=== PATIENT | male | born 1975 | race Caucasian/White ===

== ENCOUNTER 2018-06-28 04:02 | Emergency (ER) | payer OTHER ==
[2018-06-28 04:27] VITALS: BP 127/87; PULSE 95; TEMP 97.6; BMI 34.5
[2018-06-28] MEDS ORDERED: methylPREDNISolone NA SUCC 125 MG/2 ML VIAL ONE ×2 (04:41→04:42)
[2018-06-28] MEDS ORDERED: FAMOTIDINE 20 MG/50 ML IVPB 20 MG/50 ML MG IVPB ONE (04:41)
--- NOTE | 2018-06-28 04:42 | PDOC ---
History of Present Illness - General Chief Complaint: Allergic Reaction Stated Complaint: ITCHING/REDNESS Time Seen by Provider: 06/28/18 04:42 - History of Present Illness Initial Comments: 43 year old previously healthy male presenting with rash and pruritus since night. Patient states that he has a flu shot and since then he has been itching with small swollen lesion son his arms and chest. The lesions got better with some Benadryl and topical creams prescribed by his doctor. He came in today because he rash hasn't completely resolved and he is still slightly itchy. Denies any SOB, wheezing, nausea, vomiting, or other symptoms. 06/28/18 05:02 Past History - Past Medical History Allergies/Adverse Reactions: Allergies Allergy/AdvReac Type Severity Reaction Status Date / Time No Known Allergies Allergy Verified 06/28/18 04:24 Home Medications: Ambulatory Orders Alfuzosin HCl [Alfuzosin HCl ER] 10 mg PO DAILY 06/10/14 Gabapentin 300 mg PO DAILY 05/31/16 Lansoprazole [Prevacid] 30 mg PO DAILY 05/31/16 Metoclopramide HCl 5 mg PO BID 05/31/16 Tramadol HCl 50 mg PO PRN PRN 05/31/16 Oxycodone HCl/Acetaminophen [Percocet 5-325 mg Tablet] 1 tab PO Q6H PRN #20 tablet MDD 4 06/01/16 Anemia: No Asthma: No Cancer: No Cardiac Disorders: No CVA: No COPD: No (SLEEP APNEA-NOT USING CPAP NOW) CHF: No Dementia: No Diabetes: No GI Disorders: Yes (GERD, GASTRIC ULCER) Disorders: Yes (ENLARGED PROSTATE) HTN: No Hypercholesterolemia: No Liver Disease: No Seizures: No Thyroid Disease: No - Surgical History Abdominal Surgery: No Appendectomy: No Cardiac Surgery: No Cholecystectomy: No Lung Surgery: No Neurologic Surgery: No Orthopedic Surgery: Yes (LEFT ARHTROSCOPY) - Immunization History Immunization Up to Date: Yes - Suicide/Smoking/Psychosocial Hx Smoking History: Never smoked Have you smoked in the past 12 months: No If you are a former smoker, when did you quit?: 2010 Information on smoking cessation initiated: No Hx Alcohol Use: No Drug/Substance Use Hx: No Substance Use Type: None Hx Substance Use Treatment: No Review of Systems - Review of Systems Constitutional: No: Chills, Diaphoresis, Fever HEENTM: No: Blurred Vision, Tearing Respiratory: No: Cough, Shortness of Breath, Wheezing Cardiac (ROS): No: Chest Pain, Irregular Heart Rate, Lightheadedness ABD/GI: No: Diarrhea, Nausea, Poor Appetite, Vomiting : No: Burning, Dysuria, Discharge Musculoskeletal: No: Back Pain, Joint Pain, Muscle Weakness Integumentary: Yes: Erythema, Lesions, Pruritus, Rash Neurological: No: Headache, Numbness, Paresthesia Psychiatric: No: Anxiety, Depression Hematologic/Lymphatic: No: Anemia, Blood Clots, Easy Bleeding *Physical Exam - Vital Signs Last Vital Signs Temp Pulse Resp BP Pulse Ox 97.6 F 95 H 20 127/87 98 06/28/18 04:24 06/28/18 04:24 06/28/18 04:24 06/28/18 04:24 06/28/18 04:24 - Physical Exam General Appearance: Yes: Nourished, Appropriately Dressed. No: Apparent Distress HEENT: positive: EOMI, DANILO, Normal ENT Inspection, Normal Voice Neck: positive: Trachea midline, Normal Thyroid, Supple. negative: Tender, Rigid Respiratory/Chest: positive: Lungs Clear, Normal Breath Sounds. negative: Chest Tender, Respiratory Distress Cardiovascular: positive: Regular Rhythm, Regular Rate Gastrointestinal/Abdominal: positive: Normal Bowel Sounds, Flat, Soft. negative : Tender Lymphatic: negative: Adenopathy, Tenderness Musculoskeletal: positive: Normal Inspection. negative: Decreased Range of Motion Extremity: positive: Normal Capillary Refill, Normal Inspection, Normal Range of Motion. negative: Tender Integumentary: positive: Dry, Warm, Erythema, Hives, Rash (Hives acorss right gforearm with swollen erythematous urticarial rash on chest and back). negative : Normal Color Medical Decision Making - Medical Decision Making Patent with unknown allergy with urticaria and pruritus for the past few days. NO Gi or respiratory involvement. Improved with Benadryl, steroids, and pepcid. Will DC with home prescription for Benadryl and continued steroid usage. 06/28/18 07:02 *DC/Admit/Observation/Transfer Diagnosis at time of Disposition: Urticaria - Discharge Dispostion Disposition: HOME Condition at time of disposition: Improved Decision to Admit order: No - Referrals Referrals: Juan Martinez MD [Primary Care Provider] - Eliel Perez MD [Staff Physician] - - Patient Instructions Printed Discharge Instructions: DI for General Allergic Reactions Additional Instructions: Please take Benadryl and steroids for your allergies as directed by your doctor. Please make an appointment with the occupancy specialist on this sheet of paper. Please return to the ED if you have any new or worsening symptoms. - Post Discharge Activity
--- NOTE | 2018-06-28 04:44 | PDOC ---
Attending Attestation - Resident Resident Name: Brayan Reyes - ED Attending Attestation I have performed the following: I have examined & evaluated the patient, The case was reviewed & discussed with the resident, I agree w/resident's findings & plan - HPI HPI: 06/29/18 00:41 Pt has itchy hives on upper body. Ate his usual foods at home. No beauty products, medicines, chemical, and no exposure to animals. - Physicial Exam PE: 06/29/18 00:42 Agree with resident. Few hives were present; disappeared with treatment in the ER. Pt has some redness and itchiness of the palms. - Medical Decision Making 06/29/18 00:43 Pt received solumedrol and IBV benadryl. He will be given PO benadryl and he will be d/c home with the meds that he received at the clinic (benadryl and prednisone)
== END 2018-06-28 07:16 | disposition home or self-care (01) ==
LOC: JER 04:02
DX: L50.9 Urticaria, unspecified (principal); K21.9 Gastro-esophageal reflux disease without esophagitis; N40.0 Benign prostatic hyperplasia without lower urinary tract symptoms; G47.30 Sleep apnea, unspecified
CPT/HCPCS: 99282-25

== ENCOUNTER 2019-04-21 10:02 | Observation (INO) | payer OTHER ==
--- NOTE | 2019-04-21 12:23 | PDOC ---
History of Present Illness - General Chief Complaint: Lightheaded Stated Complaint: Nausea/Vomiting Time Seen by Provider: 04/21/19 12:07 - History of Present Illness Initial Comments: Mr. Hernandez is a 44 y/o male with PMH significant for gastric ulcer and arthritis, presenting today with headache that started this morning around 7am. Describes it as a left sided temporal headache that has spread to a frontal headache. Describes it as a pressure like sensation. Reports photophobia, denies phonophobia, changes in vision, or changes in hearing. Reports associated nausea and vomiting NBNB this morning. Reports that the nausea mildly subsided with zofran from EMS, but has returned. States that the nausea/vomiting and vertigo are worse with movement. Reports that he had similar symptoms around 5 years ago but was never medically evaluated for that. Denies fever, denies neck pain, denies chest pain, shortness of breath, abdominal pain, changes in stools or urinary symptoms, denies recent illness. Past History - Past Medical History Allergies/Adverse Reactions: Allergies Allergy/AdvReac Type Severity Reaction Status Date / Time No Known Allergies Allergy Verified 06/28/18 04:24 Home Medications: Ambulatory Orders Metoprolol Succinate 25 mg PO DAILY 04/21/19 Pantoprazole Sodium [Protonix -] 40 mg PO DAILY 04/21/19 Meclizine HCl [Antivert -] 25 mg PO TID 20 Days #60 tablet 04/23/19 Anemia: No Asthma: No Cancer: No Cardiac Disorders: No CVA: No COPD: No (SLEEP APNEA-NOT USING CPAP NOW) CHF: No Dementia: No Diabetes: No GI Disorders: Yes (GERD, GASTRIC ULCER) Disorders: Yes (ENLARGED PROSTATE) HTN: No Hypercholesterolemia: No Liver Disease: No Seizures: No Thyroid Disease: No - Surgical History Abdominal Surgery: No Appendectomy: No Cardiac Surgery: No Cholecystectomy: No Lung Surgery: No Neurologic Surgery: No Orthopedic Surgery: Yes (LEFT ARHTROSCOPY) - Immunization History Immunization Up to Date: Yes - Suicide/Smoking/Psychosocial Hx Smoking History: Never smoked Have you smoked in the past 12 months: No If you are a former smoker, when did you quit?: 2010 Information on smoking cessation initiated: No Hx Alcohol Use: No Drug/Substance Use Hx: No Substance Use Type: None Hx Substance Use Treatment: No Review of Systems - Review of Systems Comments:: ROS GENERAL/CONSTITUTIONAL: No fever or chills. No weakness. HEAD, EYES, EARS, NOSE AND THROAT: No change in vision. Reports photophobia. No ear pain or discharge. No sore throat. CARDIOVASCULAR: No chest pain or shortness of breath. RESPIRATORY: Denies cough, hemoptysis. GASTROINTESTINAL: Reports nausea, vomiting. Denies diarrhea or constipation. GENITOURINARY: No dysuria, frequency, or change in urination. MUSCULOSKELETAL: No joint or muscle swelling or pain. No neck or back pain._ SKIN: No rash. NEUROLOGIC: Reports frontal headache and vertigo. Denies loss of consciousness, or change in strength/sensation. ENDOCRINE: No increased thirst. No abnormal weight change. HEMATOLOGIC/LYMPHATIC: No anemia, easy bleeding, or history of blood clots. ALLERGIC/IMMUNOLOGIC: No hives or skin allergy. *Physical Exam - Vital Signs Last Vital Signs Temp Pulse Resp BP Pulse Ox 97.4 F L 88 18 154/89 96 04/21/19 10:04 04/21/19 10:04 04/21/19 10:04 04/21/19 10:04/21/19 10:04 - Physical Exam Comments: PE GENERAL: Awake, alert, and oriented to person/place/time, in no acute distress. HEAD: No signs of trauma, normocephalic, atraumatic. EYES: PERRLA, EOMI, sclera anicteric, conjunctiva clear. ENT: Hearing grossly normal, nares patent, oropharynx clear without exudates. No uvular deviation. Moist mucosa. NECK: Normal ROM, supple, no lymphadenopathy, JVD, or masses. LUNGS: No distress, speaks in full sentences, clear to auscultation bilaterally. HEART: Regular rate and rhythm, normal S1 and S2, no murmurs appreciated, peripheral pulses normal and equal bilaterally. ABDOMEN: Soft, nontender, normoactive bowel sounds. No guarding, no rebound. No masses. EXTREMITIES: Normal inspection, Normal range of motion, no edema. No clubbing or cyanosis. NEUROLOGICAL: Cranial nerves II through XII grossly intact. Normal speech, normal gait, no focal sensorimotor deficits. Horizontal nystagmus on right lateral gaze. Horizontal nystagmus with rotational component to the right on vertical gaze. SKIN: Warm, normal turgor, no rashes or lesions noted. Diaphoretic. ED Treatment Course - LABORATORY CBC & Chemistry Diagram: 04/22/19 05:25 04/22/19 05:25 Medical Decision Making - Medical Decision Making 04/21/19 1245 44M presenting with frontal pressure headache that started this morning. Associated with nausea and vomiting. Describes vertigo like dizziness that is worse with movement and head rotation. DDx includes peripheral vertigo vs central vertigo. Plan to obtain CBC, CMP, EKG, CT head. 04/21/19 15:00 CT shows no acute intracranial process. Pt reassessed after antivert, zofran, and valium. Reports that vertigo has mildly decreased but still feels nausea/vomiting when he moves or turns his head. Will trial Valium and reassess. 04/21/19 1515 EKG shows NSR, 92 bpm, no axis deviation, no ST elevation/depression, QTc 445. 04/21/19 1630 Patient unable to ambulate without assistance. Reports that nausea, vomiting, and vertigo persist. Plan to admit with neuro consult. Spoke with Dr. Brady, who agrees to admit the patient. *DC/Admit/Observation/Transfer Diagnosis at time of Disposition: Vertigo - Discharge Dispostion Disposition: HOME Condition at time of disposition: Stable Decision to Admit order: Yes - Referrals - Patient Instructions - Post Discharge Activity
[2019-04-21] MEDS ORDERED: SODIUM CHLORIDE 0.9% 500 ML INFUS.BAG IV ONE (12:41)
[2019-04-21] MEDS ORDERED: MECLIZINE HCL 25 MG TABLET (FP) PO ONE (12:41)
[2019-04-21] MEDS ORDERED: MECLIZINE HCL 25 MG TABLET (FP) ONE (12:53)
[2019-04-21] MEDS ORDERED: ONDANSETRON 4 MG/2 ML VIAL IVPUSH ONE (13:14)
[2019-04-21] MEDS ORDERED: diazePAM 2 MG TABLET PO ONE ×2 (13:14→14:56)
--- NOTE | 2019-04-21 13:14 | PDOC ---
Documentation entered by Sandie Nur SCRIBE, acting as scribe for Cole Olvera MD. Cole Olvera MD: This documentation has been prepared by the Boom quigley Xhesika, SCRIBE, under my direction and personally reviewed by me in its entirety. I confirm that the documentation accurately reflects all work, treatment, procedures, and medical decision making performed by me. Attending Attestation - Resident Resident Name: Jagdeep Melchor - ED Attending Attestation I have performed the following: I have examined & evaluated the patient, The case was reviewed & discussed with the resident, I agree w/resident's findings & plan - HPI HPI: 04/21/19 12:58 The patient is a 44 year old male with a significant PMH of HTN, vertigo, gastric ulcer and arthritis who presents to the emergency department with vertigo since this morning. Pt awoke feeling well, while at work bent down to pick something up from the floor and upon standing felt sudden vertigo, described as room spinning and worsened with head movements. Patient notes he also endorses a frontal headache described as "pressure" that was gradual in onset and now resolving. Patient reports associated nausea and vomiting, however , nausea subsided with Zofran, received from EMS enroute to the ED. The patient denies chest pain, shortness of breath. Denies fever, chills, cough , nausea, vomiting, diarrhea and constipation. Denies dysuria, frequency, urgency and hematuria. Allergies: NKDA PCP: Juan Gutierrez - Physicial Exam PE: 04/21/19 13:12 Afebrile, vital signs normal Alert lying in stretcher with eyes closed, otherwise no acute distress speaking full sentences NEURO: Mental status: The patient is alert and oriented x3. Cranial nerves: Cranial nerves II through XII are intact, fatiguing horizontal nystagmus Motor: The upper extremities are 5 over 5 in all muscle groups. The lower extremities are 5 over 5 in all muscle groups. No pronator drift. Sensation: Sensation is intact to light touch throughout. Cerebellar: Bbuxav-vbueyt-hxip is normal in both upper extremities. Heel-knee- appiah is normal in both lower extremities. Reflexes: 2+ and symmetric in the upper and lower extremities. Gait: Normal. Heel and toe walking are normal. Tandem gait is normal. - Medical Decision Making 04/21/19 13:13 44-year-old male with positional vertigo with acute onset this morning, associated with nausea/vomiting but normal neurological exam and hemodynamically stable. Presentation seems most consistent with peripheral etiology. Check CT head IV fluids, antiemetics Trial of meclizine Reassess Heart Score/ECG Review #1 ECG reviewed & interpreted by me at: 13:10 General ECG Interpretation: Sinus Rhythm, Normal Rate (92), Normal Intervals ( qtc 445), No acute ischemic changes
[2019-04-21] MEDS ORDERED: diazePAM 2 MG TABLET ONE ×2 (13:25→15:50)
[2019-04-21] MEDS ORDERED: ONDANSETRON 4 MG/2 ML VIAL ONE (13:30)
[2019-04-21 13:31] LABS: BASO % 0.8 % (0-2.0); EOS % 0.5 % (0-4.5); HEMATOCRIT 45.5 % (35.4-49); HEMOGLOBIN 15.3 GM/dL (11.7-16.9); LYMPH % 22.3 % (8-40); MCH 28.9 pg (25.7-33.7); MCHC 33.5 g/dl (32.0-35.9); MEAN CELL VOLUME 86.2 fl (80-96); MEAN PLT VOLUME 8.3 fl (7.5-11.1); MONO % 4.6 % (3.8-10.2); NEUT % 71.8 % (42.8-82.8); PLATELET COUNT 260 K/MM3 (134-434); RBC 5.28 M/mm3 (4.00-5.60); RDW 13.5 % (11.9-15.9); WHITE BLOOD COUNT 5.4 K/mm3 (4.0-10.0)
[2019-04-21 14:01] LABS: ALBUMIN 4.4 g/dl (3.4-5.0); BILIRUBIN,TOTAL 0.5 mg/dL (0.2-1); BLOOD UREA NITROGEN 13.2 mg/dL (7-18); CALCIUM 9.4 mg/dL (8.5-10.1); CREATININE 1.1 mg/dL (0.55-1.3); POTASSIUM 4.2 mmol/L (3.5-5.1); TOT PROT 8.4 g/dl (6.4-8.2)
--- NOTE | 2019-04-21 16:02 | EKG ---
Test Reason : Blood Pressure : / mmHG Vent. Rate : 092 BPM Atrial Rate : 092 BPM P-R Int : 182 ms QRS Dur : 086 ms QT Int : 360 ms P-R-T Axes : 043 012 024 degrees QTc Int : 445 ms NORMAL SINUS RHYTHM NORMAL ECG WHEN COMPARED WITH ECG OF 02-OCT-2013 13:37, NO SIGNIFICANT CHANGE WAS FOUND Confirmed by MD SPENCE MOYSES ([id number]) on 04/21/2019 4:01:57 PM Referred By: Confirmed By:DONALD SPENCE MD
--- NOTE | 2019-04-21 18:19 | HP ---
Admitting History and Physical - Primary Care Physician PCP: Juan Martinez - Admission Chief Complaint: dizziness History of Present Illness: patient seen and examined on the floor Chart reviewed Case was discussed with emergency room resident ER records reviewed and I concur In summary Mr. Hernandez is a 44 y/o male with PMH significant for gastric ulcer and arthritis, presenting today with headache that started this morning around 7am. Describes it as a left sided temporal headache that has spread to a frontal headache. Describes it as a pressure like sensation. Reports photophobia, denies phonophobia, changes in vision, or changes in hearing. Reports associated nausea and vomiting NBNB this morning. Reports that the nausea mildly subsided with zofran from EMS, but has returned. States that the nausea/vomiting and vertigo are worse with movement. Reports that he had similar symptoms around 5 years ago but was never medically evaluated for that. Denies fever, denies neck pain, denies chest pain, shortness of breath, abdominal pain, changes in stools or urinary symptoms, denies recent illness. When I saw him on the floor----still feels dizzy especially when he opens eyes at bedside Denies chest pain History Source: Patient Limitations to Obtaining History: No Limitations - Past Medical History Cardiovascular: Yes: HTN - Smoking History Smoking history: Never smoked Have you smoked in the past 12 months: No If you are a former smoker, when did you quit?: 2010 - Alcohol/Substance Use Hx Alcohol Use: No Home Medications - Allergies Allergies/Adverse Reactions: Allergies Allergy/AdvReac Type Severity Reaction Status Date / Time No Known Allergies Allergy Verified 06/28/18 04:24 - Home Medications Home Medications: Ambulatory Orders Alfuzosin HCl [Alfuzosin HCl ER] 10 mg PO DAILY 06/10/14 Gabapentin 300 mg PO DAILY 05/31/16 Metoprolol Succinate 25 mg PO DAILY 04/21/19 Pantoprazole Sodium [Protonix -] 40 mg PO DAILY 04/21/19 Family Disease History - Family Disease History Family History: Unremarkable Review of Systems - Review of Systems Constitutional: reports: No Symptoms, Other Eyes: reports: No Symptoms HENT: reports: No Symptoms Neck: reports: No Symptoms Cardiovascular: reports: No Symptoms Respiratory: reports: No Symptoms Gastrointestinal: reports: Nausea. denies: No Symptoms Genitourinary: reports: No Symptoms Neurological: reports: Dizziness Hematology/Lymphatic: reports: No Symptoms Psychiatric: reports: No Symptoms Physical Examination Vital Signs: Vital Signs Temperature 98 F 04/21/19 17:02 Pulse Rate 81 04/21/19 17:02 Respiratory Rate 18 04/21/19 17:02 Blood Pressure 149/88 04/21/19 17:02 O2 Sat by Pulse Oximetry (%) 98 04/21/19 17:02 Labs: CBC, BMP 04/21/19 13:00 04/21/19 13:00 Imaging - Results Cat Scan: Report Reviewed EKG: Report Reviewed Problem List - Problems (1) Hypertension Code(s): I10 - ESSENTIAL (PRIMARY) HYPERTENSION (2) Vertigo Code(s): R42 - DIZZINESS AND GIDDINESS (3) History of BPH Code(s): Z87.438 - PERSONAL HISTORY OF OTHER DISEASES OF MALE GENITAL ORGANS Assessment/Plan monitor Antivert Check orthostasis Neurology consultation Will follow
[2019-04-21 20:44] VITALS: BMI 32.8
[2019-04-21] MEDS: MECLIZINE HCL 25 MG TABLET (FP) PO SCH (21:40)
[2019-04-22 06:12] LABS: BASO % 0.7 % (0-2.0); EOS % 1.5 % (0-4.5); HEMATOCRIT 41.6 % (35.4-49); HEMOGLOBIN 14.2 GM/dL (11.7-16.9); LYMPH % 28.7 % (8-40); MCH 29.2 pg (25.7-33.7); MCHC 34.1 g/dl (32.0-35.9); MEAN CELL VOLUME 85.5 fl (80-96); MONO % 6.1 % (3.8-10.2); PLATELET COUNT 273 K/MM3 (134-434); RBC 4.87 M/mm3 (4.00-5.60); RDW 13.6 % (11.9-15.9)
[2019-04-22] MEDS: MECLIZINE HCL 25 MG TABLET (FP) PO SCH ×3 (06:22→21:34)
[2019-04-22 07:07] LABS: ALBUMIN 3.7 g/dl (3.4-5.0); BILIRUBIN,TOTAL 0.6 mg/dL (0.2-1); BLOOD UREA NITROGEN 12.5 mg/dL (7-18); CALCIUM 8.8 mg/dL (8.5-10.1); TOT PROT 7.3 g/dl (6.4-8.2)
[2019-04-22] MEDS: TAMSULOSIN HCL 0.4 MG CAP PO SCH (08:41)
--- NOTE | 2019-04-22 08:58 | CON.NEURO ---
Consult - Alcohol/Substance Use Hx Alcohol Use: No - Smoking History Smoking history: Former smoker Have you smoked in the past 12 months: No If you are a former smoker, when did you quit?: 2010 Home Medications - Allergies Allergies/Adverse Reactions: Allergies Allergy/AdvReac Type Severity Reaction Status Date / Time No Known Allergies Allergy Verified 06/28/18 04:24 - Home Medications Home Medications: Ambulatory Orders Alfuzosin HCl [Alfuzosin HCl ER] 10 mg PO DAILY 06/10/14 Gabapentin 300 mg PO DAILY 05/31/16 Metoprolol Succinate 25 mg PO DAILY 04/21/19 Pantoprazole Sodium [Protonix -] 40 mg PO DAILY 04/21/19 Physical Exam-Neuro Vital Signs: Vital Signs Temperature 98.4 F 04/22/19 05:00 Pulse Rate 81 04/22/19 05:00 Respiratory Rate 18 04/22/19 02:17 Blood Pressure 142/78 04/22/19 05:00 O2 Sat by Pulse Oximetry (%) 97 04/22/19 02:17 Labs: CBC, BMP 04/22/19 05:25 04/22/19 05:25 Assessment/Plan cc Headache and vertigo feeling since April 21 HPI 44 year old male , known to . Patient has history of headache, gastric ulcer, arthriits. Patient came with headhace and feeling of vertigo sensation. He was found to have right nystagmus , his ct head is normal. Patient was given zofran and symptoms improved but came back again. He continue to have vertigo sensation and it gets worse with head movement. He is sitting in chair and able to give history. His speech is normal. He has similar episode five years ago. He is on gabapentin for ? neuropathy. Allergies/Adverse Reactions: Allergies Allergy/AdvReac Type Severity Reaction Status Date / Time No Known Allergies Allergy Verified 06/28/18 04:24 Home Medications: Alfuzosin HCl [Alfuzosin HCl ER] 10 mg PO DAILY 06/10/14 Gabapentin 300 mg PO DAILY 05/31/16 Metoprolol Succinate 25 mg PO DAILY 04/21/19 Pantoprazole Sodium [Protonix -] 40 mg PO DAILY 04/21/19 PMH as above FH,ROS reviewed in chart NEUROLOGICAL SYMPTOMS Alert oriented x 3, speech is normal, VSS, Neck is supple EOMI, Pupils reactive, no face asymmetry, vf normal by confrontation mild right rotational nystagmus on right gaze 5/5 all ext ftn,hts is normal sensation is noraml ct head is normal Assessment/Plan 1. Benign Positional vertigo, it started suddenly in certain position. Given patient symptoms are not improving ,I would do mri of brain, start pt and continue meclizine. Overall Prognosis discussed and he was reassured. Plan: MRI of brain -PT -Continue meclizine prn - d/c gabapentin Thanking you so much Ajit Beyer MD
[2019-04-22] MEDS ORDERED: GABAPENTIN 300 MG CAPSULE (FP) PO SCH (10:00)
[2019-04-22] MEDS ORDERED: PATIENT'S OWN MEDICATION (NON-FORMULARY) (Alfuzosin Hcl [Alfuzosin Hcl Er] 10 MG) PO SCH (10:00)
[2019-04-22] MEDS: metoPROLOL SUCCINATE 25 MG TAB.SR.24H (FP) PO SCH (10:43)
[2019-04-22] MEDS: PANTOPRAZOLE 40 MG TABLET (FP) PO SCH (10:43)
--- NOTE | 2019-04-22 16:37 | PN ---
Progress Note, Physician History of Present Illness: Better Neuro consult noted/ appreciated on further questioning- also gives heaviness in ears/ hearing issues - follows ent overall better - Current Medication List Current Medications: Active Medications Meclizine HCl (Antivert -) 25 mg PO TID [facility] Last Admin: 04/22/19 14:24 Dose: 25 mg Metoprolol Succinate (Toprol Xl -) 25 mg PO DAILY [facility] Last Admin: 04/22/19 10:43 Dose: 25 mg Pantoprazole Sodium (Protonix -) 40 mg PO DAILY [facility] Last Admin: 04/22/19 10:43 Dose: 40 mg Tamsulosin HCl (Flomax -) 0.4 mg PO DAILY@0830 [facility] Last Admin: 04/22/19 08:41 Dose: 0.4 mg - Objective Vital Signs: Vital Signs Temperature 98.5 F 04/22/19 13:00 Pulse Rate 84 04/22/19 13:00 Respiratory Rate 20 04/22/19 13:00 Blood Pressure 139/75 04/22/19 13:00 O2 Sat by Pulse Oximetry (%) 97 04/22/19 02:17 Constitutional: Yes: No Distress, Calm Eyes: Yes: Conjunctiva Clear HENT: Yes: WNL Neck: Yes: Supple Cardiovascular: Yes: Regular Rate and Rhythm Respiratory: Yes: CTA Bilaterally Gastrointestinal: Yes: Soft Edema: No Neurological: Yes: Alert Psychiatric: Yes: Alert Labs: CBC, BMP 04/22/19 05:25 04/22/19 05:25 Problem List - Problems (1) Hypertension Code(s): I10 - ESSENTIAL (PRIMARY) HYPERTENSION (2) Vertigo Code(s): R42 - DIZZINESS AND GIDDINESS (3) History of BPH Code(s): Z87.438 - PERSONAL HISTORY OF OTHER DISEASES OF MALE GENITAL ORGANS Assessment/Plan monitor Antivert mri brain bp elevated add norvasc will folow
[2019-04-23] MEDS: MECLIZINE HCL 25 MG TABLET (FP) PO SCH (06:24)
[2019-04-23] MEDS: TAMSULOSIN HCL 0.4 MG CAP PO SCH (08:05)
--- NOTE | 2019-04-23 08:53 | PN ---
Progress Note (short form) - Note Progress Note: 44 year old male , known to luz. Patient has history of headache, gastric ulcer, arthriits. Patient came with headhace and feeling of vertigo sensation. He was found to have right nystagmus , his ct head is normal. Patient was given zofran and symptoms improved but came back again. He continue to have vertigo sensation and it gets worse with head movement. He is sitting in chair and able to give history. His speech is normal. He has similar episode five years ago. His gabapnetin was stopped , his mri of brain is unremarkable, patient is feeling much better NEUROLOGICAL SYMPTOMS Alert oriented x 3, speech is normal, VSS, Neck is supple EOMI, Pupils reactive, no face asymmetry, vf normal by confrontation mild right rotational nystagmus on right gaze 5/5 all ext ftn,hts is normal sensation is noraml ct head is normal mri of brain unremarkable Assessment/Plan 1. Benign Positional vertigo, it started suddenly in certain position. His symptoms much i proved, most likley he had BPPV. Plan: PT can be continued outpatient -Continue meclizine prn - d/c gabapentin follow up outpatient, he can be discharged outpatient Thanking you so much Ajit Beyer MD
[2019-04-23] MEDS: PANTOPRAZOLE 40 MG TABLET (FP) PO SCH (10:02)
[2019-04-23] MEDS: metoPROLOL SUCCINATE 25 MG TAB.SR.24H (FP) PO SCH (10:02)
--- NOTE | 2019-04-23 10:02 | DS ---
Physical Examination Vital Signs: Vital Signs Temperature 98 F 04/23/19 06:00 Pulse Rate 74 04/23/19 06:00 Respiratory Rate 20 04/23/19 06:00 Blood Pressure 138/76 04/23/19 06:00 O2 Sat by Pulse Oximetry (%) 97 04/23/19 02:00 Findings/Remarks: pt seen/ examined. feels better Dizziness better Wants to go home MRI--brain negative-- still feels heaviness in ears--going to see his ENT Constitutional: Yes: No Distress, Calm Eyes: Yes: Conjunctiva Clear HENT: Yes: WNL Neck: Yes: WNL, Supple Cardiovascular: Yes: Regular Rate and Rhythm Respiratory: Yes: CTA Bilaterally Edema: No Neurological: Yes: WNL, Alert, Cran Nerves II-XII Intact Psychiatric: Yes: Alert Labs: CBC, BMP 04/22/19 05:25 04/22/19 05:25 Discharge Summary Reason For Visit: VERTIGO Current Active Problems History of BPH (Acute) Hypertension (Acute) Vertigo (Acute) Hospital Course: admitted for dizziness and vertigo Unable to walk or stand Significantly better Neurology followed On Antivert MRI negative Discharge home We'll hold----BPH medication-----patient in agreement-----also reports has no symptoms of urinary issues will be following with his primary doctor Will discharge home on Antivert Discussed with nursing staff also medications reconciled Condition: Stable - Instructions Referrals: Bobby Lindsey MD [Staff Physician] - 04/24/19 3:00 pm Disposition: HOME - Home Medications Comprehensive Discharge Medication List: Ambulatory Orders Metoprolol Succinate 25 mg PO DAILY 04/21/19 Pantoprazole Sodium [Protonix -] 40 mg PO DAILY 04/21/19 Meclizine HCl [Antivert -] 25 mg PO TID 20 Days #60 tablet 04/23/19
[2019-04-23 12:48] VITALS: BP 139/80; PULSE 80; TEMP 98.4
== END 2019-04-23 12:50 | disposition home or self-care (01) ==
LOC: JER 10:02 → INTOOBSV 16:17 → JERBED 16:17 → UNDOADMOB 16:17 → JERBED 18:17 → J6S 19:03
PROVIDERS: ADMIT Internal Medicine; ATTEND Internal Medicine
PROC: 3E033GC Introduction of Other Therapeutic Substance into Peripheral Vein, Percutaneous Approach (ICD-10-PCS; principal; 2019-04-21)
PROC: 3E0337Z Introduction of Electrolytic and Water Balance Substance into Peripheral Vein, Percutaneous Approach (ICD-10-PCS; 2019-04-21)
DX: H81.10 Benign paroxysmal vertigo, unspecified ear (principal); I10 Essential (primary) hypertension; K21.9 Gastro-esophageal reflux disease without esophagitis; Z87.891 Personal history of nicotine dependence; G47.30 Sleep apnea, unspecified; Z87.438 Personal history of other diseases of male genital organs
CPT/HCPCS: 36415; 70450-TC; 70551-TC; 80053; 84443; 85025; 93005; 93010; 97116-GP; 97161-GP; 99285-25; G0378